=== PATIENT | female | born 1995 | race Caucasian/White ===

== ENCOUNTER 2018-04-24 18:11 | Emergency (ER) | payer OTHER ==
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
[2018-04-24] MEDS ORDERED: Ketorolac Tromethamine 30 MG/ML VIAL ONE (19:52)
== END 2018-04-24 20:04 | disposition home or self-care (01) ==
LOC: ERS 18:11
DX: M54.2 Cervicalgia (principal); R51 Headache; V89.2XXA Person injured in unspecified motor-vehicle accident, traffic, initial encounter
CPT/HCPCS: 70450; 72125; 96374; J1885